=== PATIENT | male | born 1985 | race Two or more races ===

== ENCOUNTER 2017-06-07 17:34 | Emergency (ER) | payer SELFPAY ==
[~2017-06-07] VITALS: Ht 180.3 cm; Wt 77.1 kg
[2017-06-07 17:39] VITALS: BP 140/91
== END 2017-06-07 18:15 | disposition home or self-care (01) ==
LOC: ER 17:38
DX: R51 Headache (principal); G89.21 Chronic pain due to trauma; Z88.8 Allergy status to other drugs, medicaments and biological substances
CPT/HCPCS: 99281; A4606; Z7610; Z7502